=== PATIENT | female | born 1970 | race Caucasian/White ===

== ENCOUNTER 2020-05-26 18:46 | Emergency (ER) | payer BC ==
[2020-05-26 19:12] VITALS: BP 141/95; PULSE 93; TEMP 99.3; BMI 25.0
[2020-05-26] MEDS ORDERED: ACETAMINOPHEN 500 MG TABLET (FP) PO ONE (20:32)
[2020-05-26] MEDS ORDERED: ACETAMINOPHEN 500 MG TABLET (FP) ONE (20:36)
[2020-05-26] MEDS ORDERED: DIPHTH,PERTUSS(ACELL),TET 0.5 ML DISP.SYRIN IM ONE ×2 (21:22→21:24)
== END 2020-05-26 21:42 | disposition home or self-care (01) ==
LOC: FER 18:46
PROC: 3E0234Z Introduction of Serum, Toxoid and Vaccine into Muscle, Percutaneous Approach (ICD-10-PCS; principal; 2020-05-26)
DX: S09.90XA Unspecified injury of head, initial encounter (principal); S00.83XA Contusion of other part of head, initial encounter; S00.81XA Abrasion of other part of head, initial encounter
CPT/HCPCS: 70450-TC; 90715; 99284-25